=== PATIENT | female | born 1975 | race African-American/Black ===

== ENCOUNTER 2021-06-02 23:53 | Emergency (ER) | payer OTHER ==
[~2021-06-02] VITALS: Ht 175.3 cm; Wt 206.0 kg
[2021-06-02 23:56] VITALS: BP 195/85
[2021-06-03] MEDS ORDERED: IPRATROPIUM BROMIDE (0.02%) 0.5MG/2.5ML NEB HHN STA (00:29)
[2021-06-03] MEDS ORDERED: ALBUTEROL (0.083%) 2.5MG/3ML NEB HHN SCH (00:30)
== END 2021-06-03 05:48 | disposition left against medical advice (07) ==
LOC: ER 23:53
DX: Z53.21 Procedure and treatment not carried out due to patient leaving prior to being seen by health care provider (principal)
CPT/HCPCS: 71045; 93005